=== PATIENT | female | born 1975 | race Two or more races ===

== ENCOUNTER 2018-09-25 23:38 | Emergency (ER) | payer OTHER ==
[~2018-09-25] VITALS: Ht 152.4 cm; Wt 55.1 kg
[2018-09-26] MEDS ORDERED: ASPIRIN 81 MG TABLET CHEW PO ONE (00:30)
[2018-09-26] MEDS ORDERED: ASPIRIN 81 MG TABLET CHEW ONE (00:31)
[2018-09-26 00:36] LABS: BASOPHILS # (AUTO) 0.03 x10^3/uL (0-0.1); BASOPHILS % (AUTO) 0 % (0-1); EOSINOPHILS # (AUTO) 0.04 x10^3/uL (0-0.4); EOSINOPHILS % (AUTO) 0 % (1-7); LYMPHOCYTES # (AUTO) 2.55 x10^3/uL (1-3.4); LYMPHOCYTES % (AUTO) 27 % (22-44); MD NO; MEAN CORPUSCULAR HEMOGLOBIN 29.4 pg (27.0-34.8); MEAN CORPUSCULAR HGB CONC 33.3 g/dL (32.4-35.8); MEAN CORPUSCULAR VOLUME 88.2 fL (80-100); MEAN PLATELET VOLUME 11.1 fL (7.4-10.4); MONOCYTES # (AUTO) 0.49 x10^3/uL (0.2-0.8); MONOCYTES % (AUTO) 5 % (2-9); NEUTROPHILS # (AUTO) 6.22 x10^3/uL (1.8-6.8); NEUTROPHILS % (AUTO) 67 % (42-75); PLATELET COUNT 232 x10^3/uL (130-400); RED BLOOD COUNT 3.17 x10^6/uL (3.82-5.3); RED CELL DISTRIBUTION WIDTH 13.9 % (9.6-15.2)
[2018-09-26 00:41] LABS: ALBUMIN 3.7 g/dL (3.4-5.0); ANION GAP 11 mmol/L (5-15); CALCIUM 8.4 mg/dL (8.5-10.1); CHLORIDE 107 mmol/L (98-107); CREATININE 0.51 mg/dL (0.55-1.02)
[2018-09-26 00:45] LABS: TROPONIN I < 0.015 ng/mL (0.000-0.045)
[2018-09-26 01:12] VITALS: BP 96/60
== END 2018-09-26 01:29 | disposition home or self-care (01) ==
LOC: ED 09-26 01:02
DX: R07.89 Other chest pain (principal)
CPT/HCPCS: 36415; 71045; 80048; 82040; 84484; 85025; 85379; 93005; 99285